=== PATIENT | male | born 1945 | race Caucasian/White ===

== ENCOUNTER 2024-01-08 07:31 | Day surgery (SDC) | payer OTHER ==
--- NOTE | 2024-01-05 15:50 | RAD REPORT ---
EXAM DESCRIPTION: RAD - Chest Pa And Lat (2 Views) - 01/05/2024 3:44 pm CLINICAL HISTORY: pre op pending hernia repairs Chest pain. COMPARISON: <Comparisons> FINDINGS: The lungs are clear. The heart is normal in size. 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 IMPRESSION: No acute or concerning finding suspected. The USPSTF recommends annual screening for lung cancer with low-dose CT (LDCT) in adults aged 50 to 8 0 years who have a 20 pack-year smoking history and currently smoke or have quit within the past 15 y ears.
[2024-01-05 16:47] LABS: Absolute Eosinophils 0.3 K/uL (0-0.5); Absolute Lymphocytes (CBC) 1.8 K/uL (0.7-4.9); Absolute Monocytes 0.7 K/uL (0.1-1.3); Absolute Neutrophil 4.5 K/uL (1.8-8.0); Basophils % 0.5 % (0-1.3); Eosinophils % 3.6 % (0-4.4); Hematocrit 40.4 % (39.6-49.0); Hemoglobin 13.5 g/dL (13.6-17.9); Lymphocytes % 24.5 % (15.3-44.8); MCH 30.4 pg (27.0-35.0); MCHC 33.4 g/dL (32.0-36.0); MCV 90.8 fL (80-100); MPV 6.7 fL (7.6-11.3); Monocytes % 9.5 % (3.3-12.3); Neutrophils % 61.9 % (41.7-73.7); Platelets 306 thou/uL (152-406); RBC Red Blood Cell Count 4.45 M/uL (4.33-5.43); Red Cell Distribution Width 13.6 % (12.1-15.2)
[2024-01-05 16:52] LABS: Anion Gap 8.5 mEq/L (5.0-15.0); Potassium 4.5 mEq/L (3.5-5.1)
[2024-01-05 16:56] LABS: PT Prothrombin Time 11.1 SECONDS (9.4-12.5); Protime INR 0.99
[2024-01-08] MEDS: Ringers Lactate 1,000 ML IV ONE (07:50)
[2024-01-08] MEDS: CEFAZOLIN SODIUM 1 GM/VIAL ONE (08:30)
[2024-01-08] MEDS: BUPIVACAINE 0.5% PF 10 ML VIAL ONE (09:02)
[2024-01-08] MEDS ORDERED: LIDOCAINE 2% MPF 5 ML VIAL ONE (09:39)
[2024-01-08] MEDS ORDERED: propofoL 200 MG/20 ML VIAL IV ONE (09:39)
[2024-01-08] MEDS ORDERED: FENTANYL CITR 100 MCG/2 ML ONE (09:39)
[2024-01-08] MEDS ORDERED: KETOROLAC 30 MG/ML INJ ONE (09:39)
[2024-01-08] MEDS ORDERED: ROCURONIUM 50 MG/5 ML VIAL IV ONE (09:39)
[2024-01-08] MEDS ORDERED: ONDANSETRON 4 MG/2 ML VIAL ONE (09:39)
[2024-01-08] MEDS ORDERED: dexAMETHasone 10 MG/ML VIAL ONE (09:41)
[2024-01-08] MEDS ORDERED: NS 0.9% VIAL 10 ML ONE (09:41)
[2024-01-08] MEDS ORDERED: EPINEPHRINE 1 MG/ML VIAL ONE (09:41)
--- NOTE | 2024-01-08 10:32 | P.BOP ---
Preoperative diagnosis: Recurrent tender left inguinal hernia and tender umbilical hernia Postoperative diagnosis: same Primary procedure: 1. Open repair of recurrent incarcerated tender left inguinal hernia with m Secondary procedure: 2. Open repair of tender reducible umbilical hernia 3cm Truck Manager: LOUIS WOODS ([employer]) Estimated blood loss: <10cc Specimen: umbilical hernia sac Findings: see dicta Anesthesia: General Complications: None Transferred to: Recovery Room Condition: Good
[2024-01-08] MEDS: MORPHINE 4 MG/ML SYR ONE (10:58)
[2024-01-08] MEDS: ONDANSETRON 4 MG/2 ML VIAL ONE (11:06)
[2024-01-08] MEDS: PROMETHAZINE INJ 25 MG/ML AMP ONE (11:57)
[2024-01-08] MEDS: CODEINE 30MG/APAP 300MG TAB ONE (12:01)
[2024-01-08 13:10] VITALS: BP 114/60; TEMP 97.6; O2SAT 97
--- NOTE | 2024-01-08 20:29 | OP ---
Date of Procedure: 01/08/2024 Surgeon: Sunil Roberts MD Maintenance And Custodian Supervisor: Leena Kulkarni. Preoperative Diagnoses: Recurrent tender left inguinal hernia and tender umbilical hernia. Postoperative Diagnoses: Recurrent tender left inguinal hernia and tender umbilical hernia. Procedures: 1.Open repair of recurrent incarcerated tender left inguinal hernia with mesh. 2.Open repair of tender reducible umbilical hernia about 3 cm. Specimen: Umbilical hernia sac. Implant: A large mesh of the left inguinal region plug and sheath. Complications: None. Findings: The patient has a recurrent left inguinal hernia and also an umbilical hernia. Indication: This is a case of an 78-year-old patient, doing okay, but recently he decided to lift 40 pounds bag and he did that, he felt a pop on the left inguinal region. When he came to our office w ith diagnosis of recurrent left inguinal hernia and also he has an umbilical hernia. The benefits, a lternatives, and risks of open repair of incarcerated tender left inguinal hernia with mesh and also open repair of tender reducible umbilical hernia were fully explained, which include, but not limited to, infection, bleeding, damage to adjacent structures, anesthesia complication, recurrence, [place], and even . He also understands this might not relieve any symptoms. He might need more than one s urgical intervention. He understand also we will most likely will be using mesh in this repair. So, pros and cons of mesh placement was discussed with the patient. All the questions were answered to his satisfaction. He signed a consent. The patient also understands the importance of no heavy lift ing. Description Of Procedure: The patient was brought to the operating room, placed in supine position. Anesthesia was done without complication. Abdomen and inguinal region were prepped and draped in a sterile fashion. A time-out was called. Incision was made in the inguinal region all the way down t o Elodia's fascia until we found external oblique aponeurosis that was opened in direction of the fib ers. Ilioinguinal nerve, iliohypogastric nerve were protected behind external oblique aponeurosis. A [place] placed around the spermatic cord. The hernia sac was identified coming from the deep ingui nal ring, but also the floor of the canal was very weak and some of it had to be reconstructed since the hernia was wide enough to come to that area. So we opened the hernia sac, the spermati c cord structure, protected the vas deferens and the rest of the structure, opened the hernia sac and then reduced the content into the abdomen and twisted the hernia sac and then ligated with a 2-0 Pro tiffany. At that moment, in order for us to fix this, I had to reconstruct the floor of the canal. So we did that with #1 Prolene. We put it in the pubic tubercle, shelving edge of the inguinal ligament and transversalis fascia. Once we had that, we put a large mesh plug in the deep inguinal ring, sec ured that with VersaTack. Then, we put a mesh sheet on the floor of the canal with pubic tubercle an d stapled to shelving edge of inguinal ligament and transversalis fascia. Again, a tail looped aroun d the spermatic cord, making sure there was no strangulation. Area was irrigated. Ilioinguinal nerv e, iliohypogastric nerve brought back into the inguinal canal. [place] was removed. After irrigatio n and suction, we proceeded to reconstruct the superficial inguinal ring with 2-0 Prolene and closed the external oblique aponeurosis making sure the nerves are not included. Area was irrigated. Then, after that, I closed the Elodia's fascia with 3-0 chromic and the skin with pavan. Sponge counts and instrument counts were correct. Patient tolerated the procedure well. At that moment, we went t o the periumbilical region. We made a curvilinear incision in the periumbilical area. Incision was carried down to fascia. We noticed the hernia sac that was opened, content reduced from the hernia s ac was ligated. After that, we noticed that we can close this with a tension-free repair with 1 Prol colton in a [id number] fashion multiple times. This is how we closed the umbilical region. Subcut aneous tissue closed with 3-0 chromic and the skin with pavan. Sponge counts and instrument counts were correct. Patient tolerated the procedure well. Patient sent to recovery in stable condi tion. JAMIN/MICHAEL Voice ID: [id number] Report ID: [id number]
--- NOTE | 2024-01-08 20:36 | DS ---
Date of Discharge: 01/08/2024 Diagnoses: Recurrent tender left inguinal hernia and tender umbilical hernia. Procedures: 1.Open repair of recurrent incarcerated tender left inguinal hernia with mesh. 2.Open repair of tender reducible umbilical hernia. Condition: Stable. Disposition: Home. Activity: As tolerated. No heavy lifting. Plan: Follow up in my office in 1 week. Call for appointment at [phone]. Keep area dry for 48 luisito rs and then may shower. Cold compress to the left inguinal region. JAMIN/MICHAEL Voice ID: [id number] Report ID: [id number]
== END 2024-01-08 14:30 | disposition home or self-care (01) ==
LOC: OR 07:31
PROVIDERS: ATTEND Surgery
PROC: 0YU60JZ Supplement Left Inguinal Region with Synthetic Substitute, Open Approach (ICD-10-PCS; principal; 2024-01-08 08:30)
PROC: 0WQF0ZZ Repair Abdominal Wall, Open Approach (ICD-10-PCS; 2024-01-08 08:30)
DX: K40.91 Unilateral inguinal hernia, without obstruction or gangrene, recurrent (principal); K42.9 Umbilical hernia without obstruction or gangrene
CPT/HCPCS: 85025; 80048; 36415; 85610; 88302; 85730; 71046; 49520; 49593; J2550; A4216; J2704; J2001; J3010; J1100; J0171; J2405 ×2; J7120; J0690